=== PATIENT | male | born 1995 | race Hispanic/Latino ===

== ENCOUNTER 2021-09-19 17:16 | Emergency (ER) | payer OTHER | END 2021-09-19 18:08 | disposition home or self-care (01) | LOC: CSHERS 17:16 | DX: H60.91 Unspecified otitis externa, right ear (principal) | CPT/HCPCS: 99282 ==

== ENCOUNTER 2022-10-14 11:04 | Emergency (ER) | payer SELFPAY ==
[2022-10-14] MEDS ORDERED: Ketorolac Tromethamine 30 MG/ML VIAL ONE (12:44)
[2022-10-14] MEDS ORDERED: Acetaminophen/Codeine 30-300mg Tablet ONE (12:44)
== END 2022-10-14 13:44 | disposition home or self-care (01) ==
LOC: CSHERS 11:04
DX: S39.012A Strain of muscle, fascia and tendon of lower back, initial encounter (principal); X50.1XXA Overexertion from prolonged static or awkward postures, initial encounter
CPT/HCPCS: 72100; 96372; J1885